=== PATIENT | female | born 2000 | race Caucasian/White ===

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

== ENCOUNTER 2021-04-08 08:15 | Emergency (ER) | payer OTHER ==
[~2021-04-08] VITALS: Ht 144.7 cm; Wt 83.9 kg
[~2021-04-08 08:15] MED LIST changes: +OMNICEF300 MG PO; +PROAIR HFA8.5 GM INH
[2021-04-08 08:35] VITALS: BP 123/67
[2021-04-08 09:56] LABS: BILIRUBIN Negative (Negative); BLOOD Negative (Negative); CLARITY Cloudy (Clear); COLOR Yellow (Yellow); GLUCOSE Negative (Negative); KETONE Negative (Negative); LEUKO ESTERASE 1+ (Negative); NITRITE Negative (Negative); PH 5.5 (4.5-8.0); UROBILINOGEN 0.2 E.U./dl (0.0-1.0)
[2021-04-08 10:08] LABS: BACTERIA 2+; EPITHELIAL CELLS 16-20
[2021-04-08 10:15] LABS: BASO # 0.1 10*3/uL (0.0-0.1); BASO % 0.6 % (0.0-1.0); EOS # 0.2 10*3/uL (0.0-0.4); EOS % 2.6 % (1.0-4.0); HEMATOCRIT 40.7 % (37.0-47.0); LYMPH # 2.8 10*3/uL (1.3-4.4); LYMPH % 34.5 % (27.0-41.0); MEAN CELL VOLUME 86.4 fl (81.0-99.0); MEAN CORPUSCULAR HGB 28.2 pg (27.0-31.0); MEAN CORPUSCULAR HGB CONC 32.7 g/dl (33.0-37.0); MEAN PLATELET VOLUME 9.9 fl (9.6-12.3); MONO # 0.4 10*3/uL (0.1-1.0); MONO % 5.1 % (3.0-9.0); NEUT # 4.6 10*3/uL (2.3-7.9); PLATELET COUNT AUTOMATED 322 10*3/uL (130-400); RED BLOOD COUNT 4.71 10*6/uL (4.10-5.10); RED CELL DISTRI WIDTH 12.7 % (0-14.5)
[2021-04-08 10:34] LABS: ALBUMIN 3.6 gm/dl (3.1-4.5); ALKALINE PHOSPHATASE 78 U/L (45-117); BUN 7 mg/dl (7-24); CHLORIDE 109 mmol/L (98-107); CREATININE 0.54 mg/dL (0.55-1.02); LIPASE 58 U/L (73-393); POTASSIUM 4.2 mmol/L (3.5-5.1); SGOT/AST 10 IU/L (3-35); SGPT/ALT 24 U/L (12-78); SODIUM 139 mmol/L (136-145); TOTAL PROTEIN 7.4 gm/dL (6.4-8.2)
[2021-04-08 10:37] LABS: BETA-HCG, QUANT < 1.0 mIU/mL (1-3)
[2021-04-08] MEDS ORDERED: PHENERGAN25 M3 PO (13:58)
[2021-04-08] MEDS ORDERED: CIPRO500 MG PO (13:58)
== END 2021-04-08 14:02 | disposition home or self-care (01) ==
LOC: ED 08:15
PROVIDERS: Emergency Medicine
DX: N39.0 Urinary tract infection, site not specified (principal); R11.2 Nausea with vomiting, unspecified; Z88.0 Allergy status to penicillin; Z88.1 Allergy status to other antibiotic agents; Z79.2 Long term (current) use of antibiotics; Z79.899 Other long term (current) drug therapy

== ENCOUNTER 2021-07-21 09:58 | Emergency (ER) | payer OTHER ==
[~2021-07-21] VITALS: Ht 144.7 cm; Wt 86.2 kg
[~2021-07-21 09:58] MED LIST changes: +CIPRO500 MG PO; +PHENERGAN25 M3 PO
[2021-07-21 10:06] VITALS: BP 111/74
[2021-07-21] MEDS ORDERED: HYDROCODON-ACE118 ML PO (10:08)
[2021-07-21 11:01] LABS: BUN 4 mg/dl (7-24); CHLORIDE 111 mmol/L (98-107); CREATININE 0.59 mg/dL (0.55-1.02); POTASSIUM 4.1 mmol/L (3.5-5.1); SODIUM 140 mmol/L (136-145)
[2021-07-21] MEDS ORDERED: ZOFRAN4 MG PO (11:45)
== END 2021-07-21 11:48 | disposition home or self-care (01) ==
LOC: ED 09:58
PROVIDERS: Emergency Medicine
DX: G89.18 Other acute postprocedural pain (principal); J02.9 Acute pharyngitis, unspecified; J45.909 Unspecified asthma, uncomplicated; Z90.89 Acquired absence of other organs; Z88.0 Allergy status to penicillin; Z88.1 Allergy status to other antibiotic agents; Z88.8 Allergy status to other drugs, medicaments and biological substances

== ENCOUNTER 2022-03-03 00:06 | Emergency (ER) | payer OTHER ==
[~2022-03-03] VITALS: Ht 144.7 cm; Wt 89.8 kg
[~2022-03-03 00:06] MED LIST changes: +HYDROCODON-ACE118 ML PO
[2022-03-03 00:28] VITALS: BP 133/88
[2022-03-03 00:56] LABS: BASO # 0.1 10*3/uL (0.0-0.1); BASO % 0.7 % (0.0-1.0); EOS # 0.2 10*3/uL (0.0-0.4); EOS % 2.8 % (1.0-4.0); HEMATOCRIT 41.7 % (37.0-47.0); LYMPH # 2.7 10*3/uL (1.3-4.4); LYMPH % 33.5 % (27.0-41.0); MEAN CELL VOLUME 87.1 fl (81.0-99.0); MEAN CORPUSCULAR HGB CONC 33.3 g/dl (33.0-37.0); MEAN PLATELET VOLUME 10.2 fl (9.6-12.3); MONO # 0.4 10*3/uL (0.1-1.0); MONO % 5.1 % (3.0-9.0); NEUT # 4.7 10*3/uL (2.3-7.9); NEUT % 57.7 % (47.0-73.0); PLATELET COUNT AUTOMATED 293 10*3/uL (130-400); RED BLOOD COUNT 4.79 10*6/uL (4.10-5.10); RED CELL DISTRI WIDTH 12.7 % (0-14.5); WHITE BLOOD COUNT 8.2 10*3/uL (4.8-10.8)
[2022-03-03 01:12] LABS: ALKALINE PHOSPHATASE 79 U/L (45-117); BUN 3 mg/dl (7-24); CHLORIDE 108 mmol/L (98-107); CREATININE 0.68 mg/dL (0.55-1.02); LIPASE 69 U/L (73-393); POTASSIUM 3.6 mmol/L (3.5-5.1); SGOT/AST 18 IU/L (3-35); SGPT/ALT 25 U/L (12-78); SODIUM 141 mmol/L (136-145); TOTAL PROTEIN 7.4 gm/dL (6.4-8.2)
[2022-03-03 01:26] LABS: BILIRUBIN Negative (Negative); BLOOD Negative (Negative); CLARITY Clear (Clear); COLOR Yellow (Yellow); GLUCOSE Negative (Negative); KETONE Negative (Negative); LEUKO ESTERASE 2+ (Negative); NITRITE Negative (Negative); PH 5.5 (4.5-8.0); UROBILINOGEN 0.2 E.U./dl (0.0-1.0)
[2022-03-03 01:50] LABS: BACTERIA 2+; EPITHELIAL CELLS 21-30; WBC 16-20 wbc/hpf (0-5)
[2022-03-03] MEDS ORDERED: LEVOFLOXACIN750 M2 PO (05:00)
== END 2022-03-03 05:03 | disposition home or self-care (01) ==
LOC: ED 00:06
PROVIDERS: Emergency Medicine
DX: N39.0 Urinary tract infection, site not specified (principal); R10.31 Right lower quadrant pain; Z88.1 Allergy status to other antibiotic agents; Z88.0 Allergy status to penicillin; Z88.3 Allergy status to other anti-infective agents

== ENCOUNTER → 2022-03-12 | Outpatient (CLI) | payer OTHER ==
[~2022-03-12] MED LIST changes: +LEVOFLOXACIN750 M2 PO
== END | disposition home or self-care (01) ==
LOC: RAD 10:20
PROVIDERS: ATTEND Family Medicine
DX: K59.00 Constipation, unspecified (principal)

== ENCOUNTER 2022-03-24 14:55 | Emergency (ER) | payer OTHER ==
[~2022-03-24] VITALS: Wt 87.1 kg
[2022-03-24 15:22] VITALS: BP 107/53
[2022-03-24] MEDS ORDERED: PREDNISONE20 M1 PO (18:03)
== END 2022-03-24 18:13 | disposition home or self-care (01) ==
LOC: ED 14:55
DX: T78.40XA Allergy, unspecified, initial encounter (principal); Z88.0 Allergy status to penicillin; Z88.1 Allergy status to other antibiotic agents; Z90.89 Acquired absence of other organs; Y92.89 Other specified places as the place of occurrence of the external cause

== ENCOUNTER → 2022-06-15 | Day surgery (SDC) | payer OTHER ==
[~2022-06-15] VITALS: Ht 144.7 cm; Wt 85.7 kg
[~2022-06-15] MED LIST changes: +PREDNISONE20 M1 PO; +PROVENTIL HFA6.7 GM INH; +Percocet 325 MG1 TAB PO
[2022-06-15 07:30] VITALS: BP 112/52
[2022-06-15 10:18] VITALS: BP 116/77
[2022-06-15 10:33] VITALS: BP 126/80
[2022-06-15 10:48] VITALS: BP 124/76
[2022-06-15 11:03] VITALS: BP 126/79
[2022-06-15 11:18] VITALS: BP 130/77
== END | disposition home or self-care (01) ==
LOC: SDC 06-12 13:15
PROVIDERS: ATTEND Obstetrics & Gynecology
DX: Z30.2 Encounter for sterilization (principal); J45.909 Unspecified asthma, uncomplicated; F41.9 Anxiety disorder, unspecified; F32.A Depression, unspecified; Z88.0 Allergy status to penicillin; Z88.1 Allergy status to other antibiotic agents; Z88.8 Allergy status to other drugs, medicaments and biological substances; Z79.899 Other long term (current) drug therapy

== ENCOUNTER 2022-09-01 20:30 | Emergency (ER) | payer OTHER ==
[~2022-09-01] VITALS: Ht 152.4 cm; Wt 77.1 kg
[2022-09-01 20:48] VITALS: BP 115/59
[2022-09-01 21:31] LABS: BASO % 0.5 % (0.0-1.0); EOS # 0.2 10*3/uL (0.0-0.4); EOS % 2.1 % (1.0-4.0); LYMPH # 3.1 10*3/uL (1.3-4.4); LYMPH % 36.4 % (27.0-41.0); MEAN CELL VOLUME 89.6 fl (81.0-99.0); MEAN CORPUSCULAR HGB 29.2 pg (27.0-31.0); MEAN CORPUSCULAR HGB CONC 32.6 g/dl (33.0-37.0); MEAN PLATELET VOLUME 10.3 fl (9.6-12.3); MONO # 0.3 10*3/uL (0.1-1.0); MONO % 3.8 % (3.0-9.0); NEUT # 4.9 10*3/uL (2.3-7.9); PLATELET COUNT AUTOMATED 306 10*3/uL (130-400); RED BLOOD COUNT 4.69 10*6/uL (4.10-5.10); RED CELL DISTRI WIDTH 13.2 % (0-14.5); WHITE BLOOD COUNT 8.5 10*3/uL (4.8-10.8)
[2022-09-01 21:42] LABS: ACT PARTIAL THROMBO TIME 29.6 SECONDS (20.0-32.1)
[2022-09-01 21:59] LABS: ALKALINE PHOSPHATASE 66 U/L (46-116); BETA-HCG, QUANT < 3.0 mIU/mL (0-10); BUN < 5 mg/dl (9-23); CHLORIDE 106 mmol/L (98-107); LIPASE 26 U/L (12-53); POTASSIUM 3.8 mmol/L (3.4-5.1); SGPT/ALT 11 U/L (10-49); TOTAL PROTEIN 6.8 gm/dL (6.0-8.0)
[2022-09-01] MEDS ORDERED: DICYCLOMINE HCL10 MG PO (22:55)
[2022-09-01] MEDS ORDERED: ONDANSETRON4 MG SL (22:55)
[2022-09-01 23:04] LABS: BILIRUBIN Negative (Negative); BLOOD 2+ (Negative); CLARITY Clear (Clear); COLOR Yellow (Yellow); GLUCOSE Negative (Negative); KETONE Negative (Negative); LEUKO ESTERASE Trace (Negative); NITRITE Negative (Negative); SPECIFIC GRAVITY 1.015 (1.001-1.030)
[2022-09-01 23:19] LABS: BACTERIA 1+
== END 2022-09-01 23:38 | disposition home or self-care (01) ==
LOC: ED 20:30
PROVIDERS: Physician Assistant
DX: R10.11 Right upper quadrant pain (principal); R10.84 Generalized abdominal pain; R11.2 Nausea with vomiting, unspecified; R51.9 Headache, unspecified; J45.909 Unspecified asthma, uncomplicated; F41.9 Anxiety disorder, unspecified; F32.A Depression, unspecified; Z88.1 Allergy status to other antibiotic agents; Z88.0 Allergy status to penicillin; Z88.2 Allergy status to sulfonamides; Z88.8 Allergy status to other drugs, medicaments and biological substances; Z90.89 Acquired absence of other organs; Z98.890 Other specified postprocedural states

== ENCOUNTER → 2022-10-26 | Day surgery (SDC) | payer OTHER ==
[~2022-10-26] VITALS: Ht 144.7 cm; Wt 85.7 kg
[~2022-10-26] MED LIST changes: +COLACE100 MG PO; +DICYCLOMINE HCL10 MG PO; +HYDROCODONE-AC1 EAC1 PO; +JAIMIESS 0.15-1 EACH PO; +ONDANSETRON HYDR4 M1 PO; +ONDANSETRON4 MG SL
[2022-10-26 10:52] VITALS: BP 118/72
[2022-10-26 13:01] VITALS: BP 158/129
[2022-10-26 13:16] VITALS: BP 112/76
[2022-10-26 13:31] VITALS: BP 122/75
[2022-10-26 13:46] VITALS: BP 117/72
[2022-10-26 14:00] VITALS: BP 120/73
== END | disposition home or self-care (01) ==
LOC: SDC 10-01 13:15
PROVIDERS: ATTEND Surgery
DX: K80.12 Calculus of gallbladder with acute and chronic cholecystitis without obstruction (principal); J45.909 Unspecified asthma, uncomplicated; F41.9 Anxiety disorder, unspecified; F32.A Depression, unspecified; K50.90 Crohn's disease, unspecified, without complications; Z90.89 Acquired absence of other organs; Z88.0 Allergy status to penicillin; Z88.1 Allergy status to other antibiotic agents; Z79.899 Other long term (current) drug therapy

== ENCOUNTER 2022-12-29 10:05 | Emergency (ER) | payer SELFPAY ==
[~2022-12-29] VITALS: Ht 144.7 cm; Wt 84.4 kg
[2022-12-29 10:20] VITALS: BP 124/72
== END 2022-12-29 11:05 | disposition home or self-care (01) ==
LOC: ED 10:05
DX: F32.A Depression, unspecified (principal); J45.909 Unspecified asthma, uncomplicated; F41.9 Anxiety disorder, unspecified; Z88.1 Allergy status to other antibiotic agents; Z88.0 Allergy status to penicillin; Z88.2 Allergy status to sulfonamides; Z88.8 Allergy status to other drugs, medicaments and biological substances; Z90.89 Acquired absence of other organs; Z98.51 Tubal ligation status; Z98.890 Other specified postprocedural states

== ENCOUNTER 2023-07-16 11:38 | Emergency (ER) | payer OTHER ==
[~2023-07-16] VITALS: Ht 144.7 cm; Wt 81.6 kg
[2023-07-16 12:03] VITALS: BP 138/84
== END 2023-07-16 14:52 | disposition left against medical advice (07) ==
LOC: ED 11:38
DX: R10.9 Unspecified abdominal pain (principal); Z88.0 Allergy status to penicillin; Z88.1 Allergy status to other antibiotic agents; Z88.2 Allergy status to sulfonamides; Z88.8 Allergy status to other drugs, medicaments and biological substances; Z53.21 Procedure and treatment not carried out due to patient leaving prior to being seen by health care provider

== ENCOUNTER 2023-11-11 15:14 | Emergency (ER) | payer OTHER ==
[~2023-11-11] VITALS: Ht 144.7 cm; Wt 98.4 kg
[2023-11-11 15:35] VITALS: BP 122/70
[2023-11-11] MEDS ORDERED: CEPHALEXIN500 M1 PO (16:45)
== END 2023-11-11 16:57 | disposition home or self-care (01) ==
LOC: ED 15:14
DX: S61.102A Unspecified open wound of left thumb with damage to nail, initial encounter (principal); F32.A Depression, unspecified; J45.909 Unspecified asthma, uncomplicated; F41.9 Anxiety disorder, unspecified; Z88.1 Allergy status to other antibiotic agents; Z88.0 Allergy status to penicillin; Z88.2 Allergy status to sulfonamides; Z88.8 Allergy status to other drugs, medicaments and biological substances; Z90.89 Acquired absence of other organs; Z98.51 Tubal ligation status; Z98.890 Other specified postprocedural states; W22.8XXA Striking against or struck by other objects, initial encounter; Y93.89 Activity, other specified; Y92.89 Other specified places as the place of occurrence of the external cause; Y99.8 Other external cause status

== ENCOUNTER 2024-03-24 08:48 | Emergency (ER) | payer OTHER ==
[~2024-03-24] VITALS: Ht 144.7 cm; Wt 104.3 kg
[~2024-03-24 08:48] MED LIST changes: +CEPHALEXIN500 M1 PO
[2024-03-24 09:08] VITALS: BP 129/76
[2024-03-24] MEDS ORDERED: methylPREDNISolone sod succ 125 MG VIAL IV ONE (09:20)
[2024-03-24] MEDS ORDERED: Albuterol Sulfate 2.5 MG/3 ML VIAL NEB ONE (09:20)
[2024-03-24] MEDS ORDERED: MAGNESIUM SULFATE 50 ML IV ONE (09:20)
[2024-03-24] MEDS ORDERED: SODIUM CHLORIDE 0.9% 1,000 ML IV ONE (09:20)
[2024-03-24 09:32] LABS: BASO # 0.1 10*3/uL (0.0-0.1); BASO % 0.4 % (0.0-1.0); EOS # 0.2 10*3/uL (0.0-0.4); EOS % 1.5 % (1.0-4.0); HEMATOCRIT 41.8 % (37.0-47.0); MEAN CELL VOLUME 90.1 fl (81.0-99.0); MEAN CORPUSCULAR HGB 28.9 pg (27.0-31.0); MEAN CORPUSCULAR HGB CONC 32.1 g/dl (33.0-37.0); MEAN PLATELET VOLUME 8.7 fl (9.6-12.3); MONO # 0.5 10*3/uL (0.1-1.0); MONO % 4.1 % (3.0-9.0); NEUT # 8.5 10*3/uL (2.3-7.9); NEUT % 71.4 % (47.0-73.0); PLATELET COUNT AUTOMATED 301 10*3/uL (130-400); RED BLOOD COUNT 4.64 10*6/uL (4.10-5.10); RED CELL DISTRI WIDTH 13.2 % (0-14.5); WHITE BLOOD COUNT 11.9 10*3/uL (4.8-10.8)
[2024-03-24 09:51] LABS: BUN 5 mg/dl (9-23); CHLORIDE 104 mmol/L (98-107)
[2024-03-24] MEDS ORDERED: PREDNISONE20 M1 PO (10:00)
[2024-03-24] MEDS ORDERED: LEVOFLOXACIN750 M2 PO (10:00)
== END 2024-03-24 11:16 | disposition home or self-care (01) ==
LOC: ED 08:48
PROVIDERS: Emergency Medicine
DX: J45.901 Unspecified asthma with (acute) exacerbation (principal); F41.9 Anxiety disorder, unspecified; F32.A Depression, unspecified; Z88.1 Allergy status to other antibiotic agents; Z88.0 Allergy status to penicillin; Z88.2 Allergy status to sulfonamides; Z88.8 Allergy status to other drugs, medicaments and biological substances; Z90.89 Acquired absence of other organs; Z98.51 Tubal ligation status; Z98.890 Other specified postprocedural states

== ENCOUNTER 2024-09-06 12:47 | Emergency (ER) | payer BC ==
[~2024-09-06] VITALS: Ht 144.7 cm; Wt 107.0 kg
[2024-09-06 13:00] VITALS: BP 129/75
[2024-09-06] MEDS ORDERED: OFLOXACIN 10 ML10 M2 OT (13:22)
[2024-09-06] MEDS ORDERED: OFLOXACIN 0.3% 5 ML BOTTLE OT ONE (13:25)
[2024-09-06] MEDS ORDERED: Acetaminophen/Hydrocodone 5 MG/325 MG TABLET PO ONE (13:25)
== END 2024-09-06 13:57 | disposition home or self-care (01) ==
LOC: ED 12:47
DX: H60.91 Unspecified otitis externa, right ear (principal); J45.909 Unspecified asthma, uncomplicated; F32.A Depression, unspecified; F41.9 Anxiety disorder, unspecified; Z79.899 Other long term (current) drug therapy; Z88.0 Allergy status to penicillin; Z88.1 Allergy status to other antibiotic agents; Z88.2 Allergy status to sulfonamides; Z98.51 Tubal ligation status; Z98.890 Other specified postprocedural states

== ENCOUNTER 2025-04-13 09:48 | Emergency (ER) | payer BC ==
[~2025-04-13] VITALS: Ht 144.7 cm; Wt 102.1 kg
[~2025-04-13 09:48] MED LIST changes: +OFLOXACIN 10 ML10 M2 OT
[2025-04-13 10:10] VITALS: BP 136/68
[2025-04-13 10:50] LABS: BASO # 0.1 10*3/uL (0.0-0.1); BASO % 0.6 % (0.0-1.0); EOS # 0.2 10*3/uL (0.0-0.4); EOS % 1.7 % (1.0-4.0); MEAN CELL VOLUME 88.9 fl (81.0-99.0); MEAN CORPUSCULAR HGB 28.9 pg (27.0-31.0); MEAN PLATELET VOLUME 10.3 fl (9.6-12.3); MONO # 0.4 10*3/uL (0.1-1.0); MONO % 4.6 % (3.0-9.0); NEUT # 5.6 10*3/uL (2.3-7.9); NEUT % 60.1 % (47.0-73.0); NUCLEATED RED BLOOD CELL 0.0 % (0.0-0.0); NUCLEATED RED BLOOD CELL 0.0 10*3/uL (0.0-0.0); PLATELET COUNT AUTOMATED 329 10*3/uL (130-400); RED CELL DISTRI WIDTH 13.3 % (0-14.5)
[2025-04-13] MEDS ORDERED: Ondansetron Hydrochloride 4 MG/2 ML VIAL IV ONE (10:50)
[2025-04-13 10:52] LABS: BILIRUBIN Negative (Negative); BLOOD 2+ (Negative); CLARITY Clear (Clear); COLOR Yellow (Yellow); KETONE Negative (Negative); LEUKO ESTERASE Negative (Negative); NITRITE Negative (Negative); PH 6.5 (4.5-8.0); SPECIFIC GRAVITY 1.015 (1.001-1.030); UROBILINOGEN 1.0 E.U./dl (0.0-1.0)
[2025-04-13 11:09] LABS: BUN 7 mg/dl (9-23)
[2025-04-13 11:12] LABS: BACTERIA 1+
[2025-04-13] MEDS ORDERED: CIPRO500 MG PO (12:31)
[2025-04-13] MEDS ORDERED: NAPROSYN500 MG PO (12:31)
== END 2025-04-13 12:38 | disposition home or self-care (01) ==
LOC: ED 09:48
PROVIDERS: Emergency Medicine
DX: N94.6 Dysmenorrhea, unspecified (principal); R30.0 Dysuria; J06.9 Acute upper respiratory infection, unspecified; M60.28 Foreign body granuloma of soft tissue, not elsewhere classified, other site; J45.909 Unspecified asthma, uncomplicated; F41.9 Anxiety disorder, unspecified; F32.A Depression, unspecified; Z88.0 Allergy status to penicillin; Z88.1 Allergy status to other antibiotic agents; Z88.5 Allergy status to narcotic agent; Z20.822 Contact with and (suspected) exposure to COVID-19